=== PATIENT | male | born 1985 | race Two or more races ===

== ENCOUNTER 2018-04-24 11:40 | Emergency (ER) | payer SELFPAY ==
[~2018-04-24] VITALS: Ht 167.6 cm; Wt 80.0 kg
[2018-04-24 11:57] VITALS: BP 117/78
[2018-04-24 13:58] LABS: CLARITY URINE CLEAR (CLEAR); COLOR URINE YELLOW (YELLOW); KETONES URINE NEGATIVE (NEGATIVE); LEUKOCYTE ESTERASE URINE NEGATIVE (NEGATIVE); NITRITE URINE NEGATIVE (NEGATIVE); OCCULT BLOOD URINE NEGATIVE (NEGATIVE); PH URINE 7.5 (4.5-8.0); PROTEIN URINE NEGATIVE (NEGATIVE); SPECIFIC GRAVITY URINE 1.019 (1.005-1.030); UROBILINOGEN URINE 0.2 E.U./dL (0.2-1.0)
== END 2018-04-24 18:48 | disposition left against medical advice (07) ==
LOC: ER 11:40
DX: R10.32 Left lower quadrant pain (principal)
CPT/HCPCS: 99283